=== PATIENT | female | born 1940 | race Caucasian/White ===

== ENCOUNTER → 2017-02-06 | Day surgery (SDC) | payer MEDICARE ==
[~2017-02-06] MED LIST: Lactated Ringers 1,000 ML IV SCH; Propofol 200 MG/20 ML SDV IV ONE
--- NOTE | 2017-02-06 12:28 | OR ---
DATE OF OPERATION: 02/06/2017 PREOPERATIVE DIAGNOSIS: FAMILY HISTORY OF COLON CANCER. POSTOPERATIVE DIAGNOSIS: FAMILY HISTORY OF COLON CANCER. SURGEON: Renaldo Arredondo MD PROCEDURE: FULL-LENGTH COLONOSCOPY WITH POLYPECTOMY X3. ANESTHESIA: COMMUNICATION CLERK due to morbid obesity and obstructive sleep apnea. COMPLICATIONS: None. SPECIMEN: Tubular adenomas x3. FINDINGS: 1. Full length colonoscopy. 2. Extremely poor prep. 3. Tubular adenomas x3. 4. Mild to moderate sigmoid diverticulosis. RECOMMENDATIONS: Followup colonoscopy in 3 to 5 years pending path reports. INDICATIONS: The patient has a family history of colon CA. It has been about 7 years since her last colonoscopy. We recommended the procedure. DESCRIPTION OF PROCEDURE: The patient was prepped and draped, placed in left lateral decubitus position. A lubricated Olympus colonoscope was inserted, and with some degree of difficulty advanced to the cecum, the patient is morbidly obese and a poor prep, it was difficult to get through the sigmoid colon where she had a lot of diverticula but once we were in the transverse colon, we passed the scope safely to the cecal area, could not get down in the cecal pouch as patient had too much stool. Right outside the cecal pouch, there was a small tubular adenoma removed with a 3 cold forceps biopsies. It was difficult to get down close and we were worried we would not be able to retrieve this with, we removed it with a snare. The rest of the ascending colon was benign, just past the hepatic flexure. In the proximal transverse colon, the patient had a second tubular adenoma removed with a snare and suctioned a polyp trap #1. Third polyp was just past the splenic flexure, also tubular adenoma less than 0.5 cm removed with a snare and suctioned a polyp trap #2. Throughout the left colon, the patient does have scattered diverticula mild-to- moderate in severity in the sigmoid colon. There was a lot of stool in the left side where we were able to suction a lot of this, but there were some areas of thicker solid stool. I could not see any obvious polyps, mass, ulceration, bleeding sites, vascular abnormalities, or signs of colitis on the left side. The rectal vault appeared benign. Retroflexion of scope in the rectum showed no anal lesions, air was suctioned, and scope removed without complication. MARCOS/GEREMIAS /[id number]
== END ==
LOC: CC.SDS 06:48
PROVIDERS: ATTEND Family Medicine
DX: Z12.11 Encounter for screening for malignant neoplasm of colon (principal); I25.10 Atherosclerotic heart disease of native coronary artery without angina pectoris; K21.9 Gastro-esophageal reflux disease without esophagitis; I10 Essential (primary) hypertension; E78.1 Pure hyperglyceridemia; E11.9 Type 2 diabetes mellitus without complications; E53.8 Deficiency of other specified B group vitamins; G47.33 Obstructive sleep apnea (adult) (pediatric); E66.01 Morbid (severe) obesity due to excess calories; D12.0 Benign neoplasm of cecum; D12.3 Benign neoplasm of transverse colon; K57.30 Diverticulosis of large intestine without perforation or abscess without bleeding; Z79.82 Long term (current) use of aspirin; Z91.011 Allergy to milk products; Z88.8 Allergy status to other drugs, medicaments and biological substances; Z86.73 Personal history of transient ischemic attack (TIA), and cerebral infarction without residual deficits; Z79.899 Other long term (current) drug therapy; Z79.4 Long term (current) use of insulin; Z98.84 Bariatric surgery status; Z90.710 Acquired absence of both cervix and uterus; Z90.722 Acquired absence of ovaries, bilateral; Z90.89 Acquired absence of other organs; Z80.0 Family history of malignant neoplasm of digestive organs; Z68.43 Body mass index [BMI] 50.0-59.9, adult
CPT/HCPCS: 45385; 82962; J2704; J7120; 00810; 88305